=== PATIENT | female | born 1985 | race Two or more races ===

== ENCOUNTER 2018-07-23 18:42 | Emergency (ER) | payer MEDICAID ==
[~2018-07-23] VITALS: Ht 162.6 cm; Wt 65.0 kg
[2018-07-23 18:59] VITALS: BP 128/78
== END 2018-07-23 21:08 | disposition left against medical advice (07) ==
LOC: ER 20:16
DX: Z53.21 Procedure and treatment not carried out due to patient leaving prior to being seen by health care provider (principal)
CPT/HCPCS: 82962